=== PATIENT | female | born 1965 | race Caucasian/White ===

== ENCOUNTER → 2018-02-12 | Outpatient (CLI) | payer OTHER | LOC: FIMAGING 12:19 | PROVIDERS: ATTEND Obstetrics & Gynecology | DX: N63.11 Unspecified lump in the right breast, upper outer quadrant (principal); N63.21 Unspecified lump in the left breast, upper outer quadrant ==

== ENCOUNTER → 2018-08-06 | Outpatient (CLI) | payer OTHER | LOC: BMCIMAGING 10:15 | PROVIDERS: ATTEND Obstetrics & Gynecology | DX: Z13.820 Encounter for screening for osteoporosis (principal); M85.89 Other specified disorders of bone density and structure, multiple sites ==

== ENCOUNTER → 2018-08-22 | Outpatient (CLI) | payer OTHER | LOC: FIMAGING 13:43 ==